=== PATIENT | male | born 2000 | race Caucasian/White ===

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

== ENCOUNTER 2022-08-07 21:43 | Emergency (ER) | payer SELFPAY ==
[2022-08-07 21:44] VITALS: BP 155/76; PULSE 107; RESP 16; TEMP 36.8; O2SAT 97; BMI 32.8
--- NOTE | 2022-08-07 22:00 | XR_ITS ---
PROCEDURE INFORMATION: Exam: XR Chest Exam date and time: 08/07/2022 10:10 PM Age: 21 years old Clinical indication: Sternal or substernal pain; Patient HX: Cough, chest pain, smoker; Additional info: Congestion TECHNIQUE: Imaging protocol: Radiologic exam of the chest. Views: 2 views. COMPARISON: No relevant prior studies available. FINDINGS: Lungs: Unremarkable. No consolidation. Pleural spaces: Unremarkable. No pleural effusion. No pneumothorax. Heart/Mediastinum: Unremarkable. No cardiomegaly. Bones/joints: Unremarkable. IMPRESSION: No acute findings.
[2022-08-07 22:30] VITALS: BP 175/92; PULSE 100; RESP 18; O2SAT 98
[2022-08-07 22:59] LABS: Coronavirus 19, PCR Not Detected (NotDetected); Influenza A, PCR Not Detected (NotDetected); Influenza B, PCR Not Detected (NotDetected)
[2022-08-07 23:00] VITALS: BP 181/88; PULSE 109; RESP 18; O2SAT 97
[2022-08-07 23:31] VITALS: BP 179/80; PULSE 97; RESP 18; O2SAT 97
[2022-08-08] VITALS: BP 167/88; PULSE 98; RESP 18; O2SAT 98
--- NOTE | 2022-08-08 00:05 | HMH.EDURI ---
Discharge Plan Disposition Patient Disposition: Home, Self-Care Prescriptions Prescriptions: New azithromycin [azithromycin] 250 mg tablet 250 mg PO DIRECTED Qty: 6 0RF Rx Instructions: Take two (2) tablets on day #1, then one (1) tablet day #2 thru #5 prednisone [prednisone] 20 mg tablet 20 mg PO BID Qty: 10 0RF No Action omeprazole 20 MG capsule,delayed release(DR/EC) 20 mg PO DAILY 30 Days Qty: 30 0RF Referrals Follow up/Referrals: Provider,Referral, [Primary Care Provider] - See instructions Poli Hernández [Referring] - See instructions Clinical Impressions Clinical Impression: Bronchitis Instructions Patient Instructions: DI for Acute Bronchitis Discharge ED Provider: Yury Murphy URI/Sore Throat HPI General Chief Complaint: Upper Respiratory Infection Stated Complaint: congestion, soa , Time Seen by Provider: 08/08/22 00:05 Mode of Arrival: Ambulatory Source of Information: Patient and Medical Record Limitations: No Limitations Description of Symptoms (Recalled from ER Triage Doc. by RN): pt c/o cough, congestion, since yesterday History of Present Illness HPI Narrative: uri sx with cough - has exposure to allergy - no fever and no rash Complaint: cough and nasal congestion Onset (ago): day(s) Duration: intermittent Severity: moderate Able to tolerate fluids by mouth: Yes Associated symptoms: denies other symptoms Related Data Previous Rx's Medication Instructions Recorded omeprazole 20 mg capsule,delayed 20 mg PO DAILY 30 days #30 caps 05/01/21 release azithromycin 250 mg tablet 250 mg PO DIRECTED #6 tabs 08/08/22 prednisone 20 mg tablet 20 mg PO BID #10 tabs 08/08/22 Allergies Allergy/AdvReac Type Severity Reaction Status Date / Time No Known Allergies Allergy Verified 05/01/21 20:25 PFSH PFS Social History Smoking Status: Current every day smoker alcohol intake: never current occupational status: other Travel in the last 8 weeks: None ROS Obtained: Yes All systems reviewed & no additional complaints except as documented Physical Exam General General appearance: alert Head Head exam: normocephalic Eye Eye exam: Present PERRL and EOMI ENT ENT exam: Present normal oropharynx and mucous membranes moist Neck Neck exam: Present full ROM and trachea midline Respiratory Respiratory exam: Present wheezes Cardiovascular Cardiovascular exam: Present regular rate; Absent systolic murmur Abdominal Exam Abdominal exam: Present soft Extremities Exam Extremities exam: Present full ROM Neurological Exam Neurological exam: Present alert, oriented X3 and CN II-XII intact Psychiatric Psychiatric exam: Present normal affect Skin Skin exam: Absent rash Medical Decision Making Medical Records Medical records reviewed: Yes I reviewed the patient's medical records. Kennedy Inquiry Pt receiving controlled substance: No Vital Signs: 08/07/22 21:44 08/07/22 22:30 08/07/22 23:00 Temperature 98.3 F Temperature Source Oral Pulse Rate 100 H 109 H Pulse Rate [Right] 107 H Respiratory Rate 16 18 18 Blood Pressure 175/92 H 181/88 H Blood Pressure [Right Arm] 155/76 H Blood Pressure Mean 120 119 Blood Pressure Mean [Right Arm] 102 02 Sat by Pulse Oximetry 97 98 97 Lab Data Lab results reviewed: Yes I reviewed the patient's lab results. Lab Results 08/07/22 22:10: SARS-CoV-2 (PCR) Not detected, Influenza A Untype (PCR) Not detected, Influenza Type B (PCR) Not detected Orders (Tests/Meds): ED MEDICATIONS Generic Name Dose Route Start Last Admin Trade Name Freq PRN Reason Stop Dose Admin Albuterol Sulfate 2 puff 08/08/22 02:00 Albuterol-Hfa 90mcg/Puff Inhaler 8gm IH 09/07/22 01:59 Q4RT JUSTICE Miscellaneous 1 unit 08/08/22 00:03 Aerochamber/Optihaler MC 08/08/22 00:04 ONCE ONE ORDERS Category Date Time Status Chest XR 2 view (NOT portable) [XR chest 2V] Stat Exams 08/07
[2022-08-08 00:16] VITALS: BP 159/78; PULSE 97; RESP 16; TEMP 36.8; O2SAT 98
== END 2022-08-08 00:17 | disposition home or self-care (01) ==
PROVIDERS: Emergency Provider Emergency Medicine
DX: J06.9 Acute upper respiratory infection, unspecified (principal)
CPT/HCPCS: 71046; 94640; 99283; C9803; U0003; U0005